=== PATIENT | female | born 1965 | race Asian ===

== ENCOUNTER 2018-05-28 06:54 | Emergency (ER) | payer OTHER, SELFPAY ==
[2018-05-28 07:01] VITALS: BP 138/89; PULSE 73; RESP 18; TEMP 36.1; O2SAT 98; BMI 28.1
[2018-05-28] MEDS: KETOROLAC 60 MG/2 ML VIAL 30 MG IM (07:47)
--- NOTE | 2018-05-28 07:58 | ED_ITS ---
HPI - Extremity Injury (Lower) General Chief Complaint: Extremity Injury, Lower Stated Complaint: RIGHT LEG PAIN Time Seen by Provider: 05/28/18 07:02 Source: patient Mode of arrival: ambulatory Limitations: no limitations History of Present Illness HPI Narrative: Patient is a 53-year-old female who presents with his right inner thigh cramping and stabbing pain. She suffers from sciatica he often is standing and moving around. She has been getting these sharp shooting pains in her medial thigh. she actually saw Dr. Cadet 4 days ago who started her on gabapentin but she unfortunately has not had it filled yet. There is some discrepancy. She yesterday had a very intense pain. She denies any pain now she has no decreased sensation she is still ambulatory no significant back pain. No fevers. Has no changes in bowel or bladder habits. Related Data Home Medications Medication Instructions Recorded Confirmed aspirin 81 mg tablet,delayed PO DAILY 90 Days #90 tab 05/25/18 05/25/18 release atorvastatin 80 mg tablet PO DAILY 90 Days #90 tab 05/25/18 05/25/18 biotin PO DAILY 05/25/18 05/25/18 carvedilol 12.5 mg tablet PO BID 90 Days #180 tab 05/25/18 05/25/18 cholecalciferol (vitamin D3) 1,000 2,000 unit PO DAILY 05/25/18 05/25/18 unit capsule ezetimibe 10 mg tablet PO DAILY 90 Days #90 tab 05/25/18 05/25/18 insulin detemir (U-100) 100 35 unit SUBCUT BID 90 Days #63 ml 05/25/18 05/25/18 unit/mL (3 mL) subcutaneous pen levothyroxine 75 mcg tablet PO DAILY 90 Days #90 tab 05/25/18 05/25/18 liraglutide 0.6 mg/0.1 mL (18 mg/3 SUBCUT 30 Days #9 ml 05/25/18 05/25/18 mL) subcutaneous pen injector losartan 25 mg tablet PO DAILY 90 Days #90 tab 05/25/18 05/25/18 omeprazole 20 mg capsule,delayed PO DAILY 90 Days #90 cap 05/25/18 05/25/18 release Previous Rx's Medication Instructions Recorded gabapentin 300 mg capsule 300 mg PO TID #90 cap 05/25/18 cyclobenzaprine 5 mg PO TID PRN #10 tab 05/28/18 Allergies Allergy/AdvReac Type Severity Reaction Status Date / Time Sulfa (Sulfonamide Allergy Unknown RASH Unverified 05/28/18 07:08 Antibiotics) [SULFA (SULFONAMIDE ANTIBIOTICS)] Review of Systems Review of Systems GENERAL: Denies chills, fatigue, malaise, fever, sweats, travel HEENT: Denies sinus pain, ear pain, sore throat, difficulty swallowing, neck pain RESPIRATORY: Denies dyspnea, cough, wheezing, hemoptysis, sputum. CARDIOVASCULAR: Denies chest pain, palpitations, orthopnea, edema GASTROINTESTINAL: Denies nausea, vomiting, abdominal pain, diarrhea, constipation, melena. : Denies dysuria, frequency, incontinence, hematuria, urinary retention, flank pain. MUSCULOSKELETAL: See HPI SKIN: No rash, no erythema, no pruritus NEUROLOGIC: Denies weakness, dizziness, headache, numbness, change in speech, confusion PSYCHIATRIC: No concerning psychosocial issues. 12 point review of systems is negative except for those stated above and HPI [facility] Medical History Coronary artery disease (Chronic) Diabetes (Chronic) Hyperlipidemia (Chronic) Hypertension (Chronic) Hypothyroid (Chronic) Social History Smoking Status: Never smoker Exam Initial Vital Signs Initial Vital Signs: Vital Signs Temperature 96.9 F L 05/28/18 07:01 Pulse Rate 73 05/28/18 07:01 Respiratory Rate 18 05/28/18 07:01 Blood Pressure 138/89 05/28/18 07:01 Pulse Oximetry 98 05/28/18 07:01 GENERAL: Well-appearing, well-nourished and in no acute distress. HEENT: Head atraumatic,EOMI, pupils reactive CARDIOVASCULAR: Regular rate and rhythm without murmurs, rubs or gallops. RESPIRATORY: Breath sounds equal bilaterally, no wheezes rales or rhonchi. ABDOMEN: Soft, nontender. Normoactive bowel sounds all 4 quadrants. No guarding or rebound. EXTREMITIES: Normal range of motion, no clubbing or edema. Neurovascularly intact Sensation in inner thighs intact sensation in lower extremities bilaterally intact and equal. NEUROLOGICAL: Alert and oriented x4.Normal gait and speech. Cranial nerves II through XII grossly intact. SKIN: Warm, dry, no laceration, no petechiae, no rashes or lesions. Course Orders Ordered: Discontinued Medications Ketorolac Tromethamine (Toradol) 30 mg IM NOW ONE Stop: 05/28/18 07:33 Last Admin: 05/28/18 07:47 Dose: 30 mg Vital Signs - 8 hr 05/28/18 07:01 05/28/18 08:07 Temperature 96.9 F L Pulse Rate 73 71 Respiratory Rate 18 16 Blood Pressure 138/89 123/78 Pulse Oximetry 98 99 Discharge Plan Departure Patient Disposition: Home Clinical Impression: Sensory peripheral neuropathy Discharge Date/Time: 05/28/18 08:08 Interventions: ED Discharge Assessment Last Done: 05/28/18 08:07 Instructions: DI for Peripheral Neuropathy Activity Restrictions/Additional Instructions: *You have been diagnosed with neuropathy *What to do: Pain is likely from back and sciatic. *Continue to take medications as directed Gabapentin as previously prescribed Flexeril 1 tab every 8 hr as needed for muscle spasms does cause drowsiness *Follow up with your primary care provider in 2-3 days *Return to ER if you should have fever, changes in bowel or bladder habits, leg weakness or any new, worsening or concerning symptoms Prescriptions: New cyclobenzaprine 5 mg tablet 5 mg PO TID PRN (Reason: muscle spasm) Qty: 10 RF: 0 No Action aspirin 81 mg tablet,delayed release (DR/EC) PO DAILY 90 Days Qty: 90 RF: 0 atorvastatin 80 mg tablet PO DAILY 90 Days Qty: 90 RF: 0 carvedilol 12.5 mg tablet PO BID 90 Days Qty: 180 RF: 0 insulin detemir U-100 100 unit/mL (3 mL) insulin pen 35 unit SUBCUT BID 90 Days Qty: 63 RF: 0 levothyroxine 75 mcg tablet PO DAILY 90 Days Qty: 90 RF: 0 ezetimibe 10 mg tablet PO DAILY 90 Days Qty: 90 RF: 0 losartan 25 mg tablet PO DAILY 90 Days Qty: 90 RF: 0 omeprazole 20 mg capsule,delayed release(DR/EC) PO DAILY 90 Days Qty: 90 RF: 0 liraglutide 0.6 mg/0.1 mL (18 mg/3 mL) pen injector SUBCUT 30 Days Qty: 9 RF: 0 cholecalciferol (vitamin D3) 1,000 unit capsule 2,000 unit PO DAILY RF: 0 biotin PO DAILY RF: 0 gabapentin 300 mg capsule 300 mg PO TID Qty: 90 RF: 2
[2018-05-28 08:07] VITALS: BP 123/78; PULSE 71; RESP 16; O2SAT 99
== END 2018-05-28 08:08 | disposition home or self-care (01) ==
PROVIDERS: Emergency Provider Emergency Medicine
DX: G62.9 Polyneuropathy, unspecified (principal)
CPT/HCPCS: 96372; 99282; 99283; J1885

== ENCOUNTER 2018-07-26 08:32 | Outpatient (CLI) | payer OTHER, SELFPAY ==
[2018-07-26] VITALS (9 sets, daily range): BP systolic 101–124; BP diastolic 71–87; PULSE 60–72; RESP 14–16; TEMP 36.2; O2SAT 95–100
--- NOTE | 2018-07-26 08:51 | DI.RAD.S_ITS ---
PROCEDURE: PAIN C/T INTERLAMINAR INJECT INDICATIONS: SPONDYLOSIS FINDINGS: Fluoroscopic spot filming was performed to verify placement of spinal needles at the C6-C7 level(s), as labeled on the films. Appropriate location(s) of the needle tip(s) was confirmed by injection of iodinated contrast. Dictated by: Donovan Hoff M.D. on 07/26/2018 at 11:06 Approved by: Donovan Hoff M.D. on 07/26/2018 at 11:06
--- NOTE | 2018-07-26 09:20 | PC.NURSE ---
pt had valium 10mg ship captain.
[2018-07-26] MEDS: MIDAZOLAM 5 MG/5 ML VIAL IV (10:01)
[2018-07-26] MEDS: LIDOCAINE 1% 20 ML INJ 5 ML INJ (10:05)
[2018-07-26] MEDS: IOPAMIDOL 15 ML VIAL 3 ML INJ (10:05)
[2018-07-26] MEDS: DEXAMETHASONE 10 MG/ML VIAL 30 MG INJ (10:05)
--- NOTE | 2018-07-26 10:09 | PC.NURSE ---
assisting pt off table and transporting to post proc area in stable condition
--- NOTE | 2018-07-26 10:19 | PM.PROC.1 ---
Procedures Date/Time Date of procedure: 07/26/18 Time of procedure: 10:19 General Procedure description: PREOP DIAGNOSIS 1. CERVICAL STENOSIS, 2. CERVICAL HNP WITH UPPER EXTREMITY RADICULAR FEATURES, POST OP DIAGNOSIS 1. CERVICAL STENOSIS, 2. CERVICAL HNP WITH UPPER EXTREMITY RADICULAR FEATURES, PROCEDURES 1. FLUORSCOPICALLY GUIDED CONTRAST CONTROLLED INTERLAMINAR EPIDURAL STEROID INJECTION - C6/7 TL GABI PHYSICIAN: Reji Cadet, DO LATHAM Esteban is referred by Dr. Rosario for treatment of Cervical HNP with Upper Extremity Paresthesias. FINDINGS Cervical Stenosis due to disc deterioration and nerve root irritation and nerve root irritation DESCRIPTION OF PROCEDURE Fluoroscopically guided, contrast-controlled C6/7 translaminar epidural steroid injection with conscious sedation. Following denial of allergy and review of potential side effects and complications, including, but not necessarily limited to, infection, allergic reaction, local tissue breakdown, temporary as well as permanent nerve injury, stroke, paralysis, and possible , the patient indicated that patient understood and agreed to proceed. An informed consent document was signed by the patient, witnessed by a nurse, and placed in the patient's chart. Additionally, other treatment options including modalities, medications, and physical therapy were reviewed with the patient. After review of previous anaesthesic history and IV conscious sedation the patient was deemed safe to proceed with todays procedure with IV conscious sedation as ASA class II designation. Safety time-out was performed to confirm patient ID, procedure to be performed and site of procedure. IV sedation was accomplished with a combination of 2mg of Versed administered by the RN after DO order, titrated to patient comfort during the course of the procedure while the patient remained responsive to all verbal commands. In the prone position, following sterile prep and drape of the cervical region, the C6/7 translaminar space was identified fluoroscopically. The skin was anesthetized via a 25-gauge 1.5-inch needle with 1% lidocaine solution. At this point, a 25-gauge, 2.5-inch short bevel spinal needle was atraumatically introduced and advanced under fluoroscopic guidance into epidural space at the C6/7 translaminar space. Depth was confirmed on lateral view. Radiological data, including multiple fluoroscopic views of the cervical spine, reveal a spinal needle at the C6/7 translaminar space. Lateral views then show placement of the needle in the epidural space. Subsequent views show contrast material flowing superiorly and inferiorly in the epidural space. DSA fluoroscopy with live contrast injection, once again, confirmed no vascular or intrathecal uptake. At this point, using loss of resistance technique with saline and air, the epidural space was entered. Following negative aspiration, injection of approximately 1.5 cc of Isovue-200 with live fluoroscopy in the AP view confirmed epidural flow in the epidural space without vascular or intrathecal uptake observed. Subsequently, a test dose of 1 cc of 1% lidocaine solution was injected and patient was observed for two minutes without signs or symptoms of complications, including abdominal pain, shortness of breath, bilateral upper or lower extremity weakness, nausea and vomiting, prior to steroid injection. At this point, 3 cc or 30 mg of dexamethasone was then injected without incident. The patient tolerated the procedure well without signs or symptoms of complications prior to being transferred to the recovery area for further monitoring, The patient was then transferred to the recovery area where they were observed for an appropriate period of time after the injection. The patient reported a VAS score of 6 prior to the procedure and a post-procedure VAS of 0. Total Fluoroscopy Time: 37.0 seconds Total Conscious Time: 24min POST OP INSTRUCTIONS The patient was provided a Pain Log to continue to record their response to the target-specific procedure prior to follow-up visit with the referring provider. Additionally, specific post-injection care instructions and a contact number to our office were provided if concerns arise regarding possible complications associated with the procedure are suspected. Reji Cadet, Complications: none
--- NOTE | 2018-07-26 10:20 | PC.NURSE ---
rtr from post procedure, able to transfer self from w/c to recliner, awake, but sleepy. resuming care from guicho rose.
--- NOTE | 2018-07-26 10:33 | PC.NURSE ---
pt increase in alertness, conversing with spouse, tolerating drinking water. denies paresthesia with 4 extremities, denies nausea,no resp distress noted.
== END 2018-07-26 10:44 | disposition home or self-care (01) ==
PROVIDERS: PCP Family Medicine; Visit Provider Physical Medicine & Rehabilitation
DX: M50.123 Cervical disc disorder at C6-C7 level with radiculopathy (principal); M48.02 Spinal stenosis, cervical region; M47.22 Other spondylosis with radiculopathy, cervical region
CPT/HCPCS: 62321; 99152; J1100; J2250

== ENCOUNTER 2022-06-23 02:16 | Emergency (ER) | payer OTHER, SELFPAY ==
--- NOTE | 2022-06-23 02:19 | ED.CHESTPAIN ---
HPI - Chest Pain General Chief Complaint: Chest Pain Stated Complaint: COVID+ CHEST PAIN Time Seen by Provider: 06/23/22 02:20 History of Present Illness HPI narrative: 57-year-old female nonsmoker with history of coronary artery disease and prior stents with a persistent abnormal EKG presents with her in the chief complaint of a harsh cough, burning in her anterior chest, body aches and a mild sore throat. She states she started having symptoms on Tuesday and took a home COVID test on Tuesday which was positive. She denies nausea, vomiting or diarrhea. She denies any significant shortness of breath. She denies any exertional symptoms or recent change in her ability to tolerate exercise. She states that she is concerned about her COVID diagnosis because she is high-risk, they called a nursing hotline and were instructed to present to the emergency department. She states this feels much different than when she had her [place] Related Data Home Medications Medication Instructions Recorded Confirmed aspirin 81 mg tablet,delayed PO DAILY 90 days #90 tabs 05/25/18 09/01/18 release atorvastatin 80 mg tablet PO DAILY 90 days #90 tabs 05/25/18 09/01/18 carvedilol 12.5 mg tablet PO BID 90 days #180 tabs 05/25/18 09/01/18 cholecalciferol (vitamin D3) 25 2,000 unit PO DAILY 05/25/18 09/01/18 mcg (1,000 unit) capsule insulin detemir U-100 100 unit/mL 35 unit SUBCUT BID 90 days #63 mL 05/25/18 09/01/18 (3 mL) subcutaneous pen levothyroxine 75 mcg tablet PO DAILY 90 days #90 tabs 05/25/18 09/01/18 liraglutide 0.6 mg/0.1 mL (18 mg/3 SUBCUT 30 days #9 mL 05/25/18 09/01/18 mL) subcutaneous pen injector losartan 25 mg tablet PO DAILY 90 days #90 tabs 05/25/18 09/01/18 omeprazole 20 mg capsule,delayed PO DAILY 90 days #90 caps 05/25/18 09/01/18 release cyclobenzaprine 10 mg tablet 10 mg PO BEDTIME 09/01/18 09/01/18 diclofenac sodium topical 09/01/18 09/01/18 empagliflozin 10 mg tablet 10 mg PO QAM 09/01/18 09/01/18 (Jardiance) insulin aspart U-100 100 unit/mL 0.2 unit SUBCUT TID 09/01/18 09/01/18 subcutaneous cartridge (Novolog PenFill U-100 Insulin aspart) spironolactone 25 mg tablet 12.5 mg PO BID 09/01/18 09/01/18 Previous Rx's Medication Instructions Recorded gabapentin 300 mg capsule 300 mg PO TID #90 caps 05/25/18 meloxicam 15 mg tablet 15 mg PO DAILY #30 tabs 09/01/18 amoxicillin 500 mg capsule 1,000 mg PO Q8H 5 days #30 caps 06/23/22 benzonatate 200 mg capsule 200 mg PO BID PRN cough #20 caps 06/23/22 Allergies Allergy/AdvReac Type Severity Reaction Status Date / Time Sulfa (Sulfonamide Allergy Unknown RASH Verified 09/01/18 15:45 Antibiotics) [SULFA (SULFONAMIDE ANTIBIOTICS)] Review of Systems Review of Systems Narrative: GENERAL: see HPI HEENT: Denies sinus pain, ear pain, sore throat, difficulty swallowing, dizziness. RESPIRATORY: see HPI CARDIOVASCULAR: Denies chest pain, palpitations, orthopnea, edema, GASTROINTESTINAL: Denies nausea, vomiting, abdominal pain, diarrhea, constipation, melena. : Denies dysuria, frequency, incontinence, hematuria, urinary retention. MUSCULOSKELETAL: denies weakness, joint pain, or bony pain SKIN: Denies rash, skin lesions, or other NEUROLOGIC: Denies weakness, headache, numbness, change in speech, confusion, seizures, incoordination. PSYCHIATRIC: No concerning psychosocial issues. 12 point review of systems is negative except for those stated above Patient History Medical History (Updated 06/23/22 @ 03:18 by Reid Do DO) Coronary artery disease Diabetes Hyperlipidemia Hypertension Hypothyroid Social History Smoking Status: Never smoker Smoking Status: Never smoker Substance Use Type: does not use Exam Narrative Exam Narrative: GENERAL: [57] year old patient appears stated age. Well-developed patient, in mild distress. Frequent dry hacking cough HEAD: Atraumatic. Normocephalic. EYES: Pupils equal round and reactive. Extraocular motions intact. No scleral icterus. No injection or drainage. ENT: Nose without bleeding, purulent drainage. Throat without erythema, tonsillar hypertrophy or exudate. Airway patent. NECK: Trachea midline. Non tender CARDIOVASCULAR: Regular rate and rhythm without murmurs, gallops, or rubs. RESPIRATORY: minimal end expiratory wheeze, deep breath illicits dry hacking cough GASTROINTESTINAL: Abdomen soft, non-tender, nondistended. EXTREMITIES: No edema or joint tenderness. BACK: Nontender without deformity or crepitance. No flank tenderness. NEURO: AOx3. SKIN: No rash or erythema of visible areas Initial Vital Signs Initial Vital Signs: Vital Signs Temperature 97 F L 06/23/22 02:25 Pulse Rate 66 06/23/22 02:25 Respiratory Rate 18 06/23/22 02:25 Blood Pressure 124/68 06/23/22 02:25 Pulse Oximetry 98 06/23/22 02:25 Oxygen Delivery Method 06/23/22 02:25 Course Orders Ordered: ED Orders 06/23/22 02:32 XR chest 1V Stat 06/23/22 02:40 C-Reactive Protein Quant Stat Complete Blood Count AUTO DIFF Stat Comprehensive Metabolic Panel Stat NT-proBNP (BNP-Adult 18+) Stat PTT [Partial Thromboplastin Time] Stat Procalcitonin Stat Prothrombin Time INR Stat Troponin & CK Cardiac Panel Stat Consultations Consultation #1: call to cardiology at [facility] to review old EKGs discussion with Dr. Mckeon and EKG is unchanged from multiple prior. Time: 02:54 Vital Signs Vital signs: Vital Signs - 8 hr 06/23/22 02:25 06/23/22 02:40 06/23/22 03:00 Temperature 97 F L Pulse Rate 66 64 Respiratory Rate 18 13 Blood Pressure 124/68 98/61 Pulse Oximetry 98 98 Oxygen Delivery Method Room Air Room Air 06/23/22 03:00 06/23/22 03:30 06/23/22 03:34 Temperature Pulse Rate 64 65 Respiratory Rate 12 16 Blood Pressure 114/62 Pulse Oximetry 97 96 Oxygen Delivery Method Room Air 06/23/22 03:34 Temperature Pulse Rate 63 Respiratory Rate 12 Blood Pressure Pulse Oximetry 96 Oxygen Delivery Method Room Air MDM - Chest Pain Lab Data Result diagrams: 06/23/22 02:40 06/23/22 02:40 Labs: Lab Results 06/23/22 06/23/22 06/23/22 Range/Units 02:40 02:40 02:40 WBC 6.2 (4.5-11.0) X10^3/uL RBC 5.46 H (4.0-5.2) X10^6/uL Hgb 12.9 (12.0-16.0) g/dL Hct 40.6 (36-46) % MCV 74.3 L (80-100) fL MCH 23.7 L (26-34) PG MCHC 31.9 (30-36) % RDW 13.8 (11.6-14.8) % Plt Count 322 (150-400) X10^3/uL Neut % (Auto) 62.4 (50-75) % Lymph % (Auto) 24.3 L (25-40) % [place] % (Auto) 10.2 (3-14) % Eos % (Auto) 2.3 (2-4) % Baso % (Auto) 0.8 (0-2) % Neut # (Auto) 3900 (4007-1081) /uL Lymph # (Auto) 1500 (6625-0322) /uL [place] # (Auto) 600 (0-900) /uL Eos # (Auto) 100 (0-450) /uL Baso # (Auto) 0 (0-100) /uL PT 10.7 (10.1-12.7) SECONDS INR 0.9 (0.9-1.3) APTT 33 (26-36) SECONDS Sodium 140 (137-145) mmol/L Potassium 4.1 (3.4-5.1) mmol/L Chloride 103 (98-107) mmol/L Carbon Dioxide 24 (22-32) mmol/L BUN 13 (7-17) mg/dL Creatinine 0.59 (0.52-1.04) mg/dL Estimated GFR > 60 (>60) mL/min BUN/Creatinine Ratio 22.0 (6-22) Glucose 188 H (70-100) mg/dL Calcium 8.5 (8.4-10.2) mg/dL Total Bilirubin 0.4 (0.2-1.3) mg/dL AST 28 (14-36) IU/L ALT 32 (<35) IU/L Alkaline Phosphatase 107 (38-126) U/L Total Creatine Kinase 70 (30-135) U/L CK-MB (CK-2) TNP CK-MB (CK-2) Rel Index TNP Troponin I < 0.012 (0.01-0.034) ng/mL C-Reactive Protein (<1.0) mg/dL NT-Pro-B Natriuret Pep (<125) pg/mL Total Protein 7.3 (6.3-8.2) g/dL Albumin 4.0 (3.5-5.0) g/dL Globulin 3.3 (1.7-4.1) g/dL Albumin/Globulin Ratio 1.2 (1.0-2.8) Procalcitonin 0.07 (<0.5) ng/mL 06/23/22 Range/Units 02:40 WBC (4.5-11.0) X10^3/uL RBC (4.0-5.2) X10^6/uL Hgb (12.0-16.0) g/dL Hct (36-46) % MCV (80-100) fL MCH (26-34) PG MCHC (30-36) % RDW (11.6-14.8) % Plt Count (150-400) X10^3/uL Neut % (Auto) (50-75) % Lymph % (Auto) (25-40) % [place] % (Auto) (3-14) % Eos % (Auto) (2-4) % Baso % (Auto) (0-2) % Neut # (Auto) (0616-0342) /uL Lymph # (Auto) (7249-3968) /uL [place] # (Auto) (0-900) /uL Eos # (Auto) (0-450) /uL Baso # (Auto) (0-100) /uL PT (10.1-12.7) SECONDS INR (0.9-1.3) APTT (26-36) SECONDS Sodium (137-145) mmol/L Potassium (3.4-5.1) mmol/L Chloride (98-107) mmol/L Carbon Dioxide (22-32) mmol/L BUN (7-17) mg/dL Creatinine (0.52-1.04) mg/dL Estimated GFR (>60) mL/min BUN/Creatinine Ratio (6-22) Glucose (70-100) mg/dL Calcium (8.4-10.2) mg/dL Total Bilirubin (0.2-1.3) mg/dL AST (14-36) IU/L ALT (<35) IU/L Alkaline Phosphatase (38-126) U/L Total Creatine Kinase (30-135) U/L CK-MB (CK-2) CK-MB (CK-2) Rel Index Troponin I (0.01-0.034) ng/mL C-Reactive Protein 2.1 H (<1.0) mg/dL NT-Pro-B Natriuret Pep 93 (<125) pg/mL Total Protein (6.3-8.2) g/dL Albumin (3.5-5.0) g/dL Globulin (1.7-4.1) g/dL Albumin/Globulin Ratio (1.0-2.8) Procalcitonin (<0.5) ng/mL Imaging Data Chest x-ray: Radiologist's Impression: Patchy infiltrate in RLL ECG Data Interpretation: [0227] EKG is normal sinus rhythm rate [67 ] ST elevations in II, II, aVF with deep q waves. T wave inversions in I, aVL, V2 Patient has been instructed by her cellular equipment repairer to keep a copy of her EKG as it has concerning, but chronic abnormal features, it appears unchanged from today's EKG. MDM Narrative Medical decision making narrative: CC: 49-year-old female with cough, congestion, headache and sore throat as well as some burning sensation in her anterior chest for the past few days, she took a home COVID test positive, she is concerned as she is high-risk Complicating co-morbidities: coronary artery disease, diabetes Data collected from: patient Medical records reviewed: prior ED notes Differential considered, but not limited to: COVID, influenza, bacterial pneumonia, [place] Exam documented above, pertinent findings include: frequent dry hacking cough, no increased work of breathing or hypoxemia. Lab Test results independently reviewed as above. Pertinent findings: no leukocytosis or left shift Independently reviewed EKG as above ST ELEVATIONS in INFERIOR LEADS are chronic and unchanged from prior Imaging studies independently reviewed: RLL Pneumonia Consultations: Discusssed with Dr. Mckeon. Review of case including history and physical exam as well as EKG. He sure the opinion that this is extremely unlikely to be cardiac disease, confirms that EKG demonstrates chronic change Discussion: 57-year-old female with COVID since Tuesday, symptoms include mild headache, sore throat, congestion, dry cough and burning in her chest. States this feels significantly different than prior cardiac events. She denies any significant shortness of breath. Chest x-ray does suggest right lower lobe pneumonia. EKG is concerning, however she has been instructed to Quynh a copy of her old EKG with her by cardiology as these findings are chronic. This is verified with on-call Cardiology tonight. She has no exertional symptoms or exercise intolerance. Troponin negative Diagnosis: Disposition: see below, along with detailed discharge instructions that have been reviewed with patient as well as indications for ED re-evaluation and additional outpatient follow up Discharge Plan Departure Patient Disposition: Home Clinical Impression: COVID, Pneumonia Instructions: DI for Pneumonia -- Adult, COVID-19 Activity Restrictions/Additional Instructions: *You have been diagnosed with [COVID, Right lower lobe pneumonia ] *What to do: *Please continue to take your regular medications as directed. [x ] New medication prescriptions sent to your pharmacy: [ ] [ ] New medication written as a paper prescription [ ] No new medications given *Please follow up with your primary care provider in 2-3 days, call for an appointment. Let them know you were seen in the Emergency Department and that we ask that you be seen in follow up. We will electronically transmit a record of today's note if your PCP is in our system *If you do not have a primary care provider please contact the [facility] Resource line at [phone]. They will ask some questions about your medical history and help get you set up with a doctor in the community. *Return to Emergency Department if you should have any new, worsening or concerning symptoms, such as [fever greater than 101 F, shaking chills, worsening pain, persistent vomiting or other bothersome symptoms] Prescriptions: New amoxicillin 500 mg capsule 1,000 mg PO Q8H 5 Days Qty: 30 0RF benzonatate 200 mg capsule 200 mg PO BID PRN (Reason: cough) Qty: 20 0RF No Action aspirin 81 mg tablet,delayed release (DR/EC) PO DAILY 90 Days Qty: 90 atorvastatin 80 mg tablet PO DAILY 90 Days Qty: 90 carvedilol 12.5 mg tablet PO BID 90 Days Qty: 180 insulin detemir U-100 100 unit/mL (3 mL) insulin pen 35 unit SUBCUT BID 90 Days Qty: 63 levothyroxine 75 mcg tablet PO DAILY 90 Days Qty: 90 losartan 25 mg tablet PO DAILY 90 Days Qty: 90 omeprazole 20 mg capsule,delayed release(DR/EC) PO DAILY 90 Days Qty: 90 liraglutide 0.6 mg/0.1 mL (18 mg/3 mL) pen injector SUBCUT 30 Days Qty: 9 cholecalciferol (vitamin D3) 1,000 unit capsule 2,000 unit PO DAILY gabapentin 300 mg capsule 300 mg PO TID Qty: 90 2RF Rx Instructions: 1-2 Tid for right arm pain. Begin with HS dose first. Titrate to Right arm relief. spironolactone 25 mg tablet 12.5 mg PO BID Jardiance 10 mg tablet 10 mg PO QAM Novolog PenFill U-100 Insulin 100 unit/mL cartridge 0.2 unit SUBCUT TID cyclobenzaprine 10 mg tablet 10 mg PO BEDTIME diclofenac sodium TOP meloxicam 15 mg tablet 15 mg PO DAILY Qty: 30 2RF Referrals: Sol Rosario DO [Primary Care Provider] - Stand Alone Forms: Patient Portal/API
[2022-06-23 02:25] VITALS: BP 124/68; PULSE 66; RESP 18; TEMP 36.1; O2SAT 98; BMI 27.4
--- NOTE | 2022-06-23 02:32 | DI.RAD.S_ITS ---
PROCEDURE: XR CHEST 1V INDICATIONS: flu-like symptoms TECHNIQUE: One view of the chest was acquired. COMPARISON: None. FINDINGS: Surgical changes and devices: None. Lungs and pleura: Faint appearance of bibasilar coarsening. Linear opacities are noted in the left base likely atelectasis. Mediastinum: Mediastinal contours appear normal. Heart size is normal. Bones and chest wall: No suspicious bony lesions. Overlying soft tissues appear unremarkable. IMPRESSION: Faint bibasilar coarsening possibly related to developing pneumonia. Dependent change cannot be excluded. Dictated by: Abeba Pennington M.D. on 06/23/2022 at 8:37 Approved by: Abeba Pennington M.D. on 06/23/2022 at 8:37
[2022-06-23 02:40] VITALS: PULSE 64; RESP 13; O2SAT 98
[2022-06-23 02:57] LABS: Add Manual Diff / Slide Review NO; Basophils Absolute Auto 0 /uL (0-100); Basophils Percent Auto 0.8 % (0-2); Eosinophils Absolute Auto 100 /uL (0-450); Eosinophils Percent Auto 2.3 % (2-4); Hematocrit 40.6 % (36-46); Hemoglobin 12.9 g/dL (12.0-16.0); Lymphocytes Absolute Auto 1500 /uL (1100-4500); Lymphocytes Percent Auto 24.3 % (25-40); Mean Corpuscular HGB Conc 31.9 % (30-36); Mean Corpuscular Hemoglobin 23.7 PG (26-34); Mean Corpuscular Volume 74.3 fL (80-100); Monocytes Absolute Auto 600 /uL (0-900); Monocytes Percent Auto 10.2 % (3-14); Neutrophils Absolute Auto 3900 /uL (1500-7000); Neutrophils Percent Auto 62.4 % (50-75); Platelet Count 322 X10^3/uL (150-400); Red Blood Cell Count 5.46 X10^6/uL (4.0-5.2); Red Cell Distribution Width 13.8 % (11.6-14.8); White Blood Cell Count 6.2 X10^3/uL (4.5-11.0)
[2022-06-23 03:00] VITALS: BP 98/61; PULSE 64; RESP 12; O2SAT 97
[2022-06-23 03:02] LABS: INR 0.9 (0.9-1.3); Prothrombin Time 10.7 SECONDS (10.1-12.7)
[2022-06-23 03:04] LABS: Alanine Aminotransferase 32 IU/L (<35); Albumin Globulin Ratio 1.2 (1.0-2.8); Alkaline Phosphatase 107 U/L (38-126); Aspartate Aminotransferase 28 IU/L (14-36); Bilirubin Total 0.4 mg/dL (0.2-1.3); Blood Urea Nitrogen 13 mg/dL (7-17); Calcium 8.5 mg/dL (8.4-10.2); Carbon Dioxide 24 mmol/L (22-32); Chloride 103 mmol/L (98-107); Creatine Kinase 70 U/L (30-135); Estimated Glomerular Filt Rate > 60 mL/min (>60); Globulin 3.3 g/dL (1.7-4.1); Glucose 188 mg/dL (70-100); HEMOLYSIS < 15 (0-50); Potassium 4.1 mmol/L (3.4-5.1); Sodium 140 mmol/L (137-145); Total Protein 7.3 g/dL (6.3-8.2)
[2022-06-23 03:05] LABS: PTT Partial Thromboplastin Tim 33 SECONDS (26-36)
[2022-06-23 03:14] LABS: NT-proBNP (BNP-Adult 18+) 93 pg/mL (<125)
[2022-06-23 03:16] LABS: Troponin I < 0.012 ng/mL (0.01-0.034)
[2022-06-23 03:21] LABS: Procalcitonin 0.07 ng/mL (<0.5)
[2022-06-23 03:30] VITALS: PULSE 65; RESP 16; O2SAT 96
[2022-06-23 03:34] VITALS: BP 114/62; PULSE 63; RESP 12; O2SAT 96
[2022-06-23 03:36] LABS: C-Reactive Protein Quant 2.1 mg/dL (<1.0)
== END 2022-06-23 03:40 | disposition home or self-care (01) ==
PROVIDERS: Emergency Provider Emergency Medicine; PCP Family Medicine
DX: U07.1 COVID-19 (principal); J18.9 Pneumonia, unspecified organism
CPT/HCPCS: 36415; 71045; 80053; 82550; 83880; 84145; 84484; 85025; 85610; 85730; 86140; 93005; 99283; 99284

== ENCOUNTER → 2024-01-18 08:46 | Outpatient (CLI) | payer OTHER, SELFPAY ==
--- NOTE | 2024-01-18 | DI.RAD.S_ITS ---
PROCEDURE: FL BARIUM SWALLOW W SPEECH INDICATIONS: OTHER DYSPHAGIA COMPARISON: None. TECHNIQUE: Examination was conducted in conjunction with speech pathology per standard protocol. In the lateral projection, filming was performed of the patient swallowing. AP projection filming may also be performed with patient swallowing. COMPARISON: FINDINGS: Function: The oral preparatory phase appears normal, with proper containment. The subsequent oral propulsive phase, pharyngeal phase, and esophageal phase of swallowing also appear normal with all proffered substances. No laryngotracheal penetration or aspiration. No pathologic vallecular pooling. Weak contraction of the mid to distal esophageal wall muscles are noted during the study. Morphology: No cricopharyngeal bar is identified. No cervical esophageal webs. No Zenker's diverticulum. No strictures. IMPRESSION: 1. Unremarkable modified barium swallow study. 2. Incidentally noted of weak contraction of the mid to distal esophageal wall muscles, which may indicate esophageal wall muscle contractility disorder suggest GI correlation. Dictated by: Ellis Elizondo M.D. on 01/18/2024 at 13:59 Approved by: Ellis Elizondo M.D. on 01/18/2024 at 14:00
--- NOTE | 2024-01-18 12:12 | ST.SWALLOW ---
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 Pt reported difficulty with swallowing, especially breads, dry chicken and large capsules. Pt has a PMH of GERD and takes omneprozol 1x/ day. She stated she recently had a EGD performed by GI in [place]. Subjective Observations Pt was seated in the fluoroscopy chair with directions and procedures described for her. She indicated she understood and agreed to proceed. Patient Positioning Position View Lat-A/P Imaging Lateral View Textures Administered Trials Presented Thin Liquid via Spoon (IDDSI 0 ),Thin Liquid via Cup (IDDSI 0 ),Extremely Thick Liquid via Spoon (IDDSI 4),Regular (IDDSI 7) Barium Tablet Yes The IDDSI Framework Protocol: IDDSI.1 Oral Impairment Source: The Modified Barium Swallow Impairment Profile (MBSImP??) Lip Closure No labial escape Tongue Control During Bolus Hold Cohesive bolus between tongue to palatal seal Bolus Preparation/Mastication Timely & efficient chewing & mashing Bolus Transport/Lingual Motion Brisk tongue motion Oral Residue Residue collection on oral structures Location Tongue Initiation of Pharyngeal Swallow Bolus head at pyriforms Additional Oral Impairment Observations *OME and DKS were observed to be WNL. *Dentition natural and in good hygiene *Mastication observed with rotary chew pattern. *Good bolus formation, control and AP transition. Pharyngeal Impairment Source: The Modified Barium Swallow Impairment Profile (MBSImP??) Soft Palate Elevation No bolus between soft palate & pharyngeal wall Laryngeal Elevation Comp.sup.move.thyroid cart.w/ comp.approx.arytenoids to epiglot petiole Anterior Hyoid Excursion Partial anterior movement Epiglottic Movement Complete inversion Laryngeal Vestibular Closure Complete; no air/contrast in laryngeal vestibule Pharyngeal Stripping Wave Present - complete Pharyngoesophageal Segment Opening Complete distention & complete duration; no obstruction of flow Tongue Base Retraction Trace column of contrast/air betwn tongue base & post. pharyngeal wall Pharyngeal Residue Collection of residue within/ on pharyngeal structures Location Valleculae Additional Pharyngeal Impairment Pharyngeal phase observed to Observations be WNL A/P View Textures Administered Trials Presented Thin Liquid via Spoon (IDDSI 0 ),Regular (IDDSI 7) The IDDSI Framework Protocol: IDDSI.1 A/P View Observations Pharyngeal Contraction Complete Esophageal Clearance Upright Position Esophageal retention w/ regtrograde flow below pharyngoesoph segment Vocal Fold Function Good Esophageal Function Slowed Clearing,Poor Motility, Reverse Peristalsis,Narrowing Clinical Impressions Dysphagia Type Esophageal Findings *Oral and pharyngeal phased WNL *Esophageal retention and slow clearing *Strartegies discussed to ease esophageal clearance to stomach with pt Patient Appropriate for Therapy No Recommendations Diet Comments No changes in diet recommended Treatment Plan Additional Recommended Referrals Possible GI referral, consult MD Therapy Strategy Recommendations Sitting Upright (90 deg) Additional Strategies Recommended Slow intaqke, increase fluids with meals to clear esophagus
== END ==
PROVIDERS: Referring Provider Otolaryngology; Visit Provider Otolaryngology
DX: R13.19 Other dysphagia (principal)
CPT/HCPCS: 74230; 92611